=== PATIENT | female | born 1980 | race Caucasian/White ===

== ENCOUNTER → 2017-04-15 | Outpatient (CLI) | payer OTHER ==
[~2017-04-15] MED LIST: ALPR0.25 PO; IBUP-1223 PO; OXYC-302 PO; PREN1TAB60 PO; SERT25TA PO; SERT50TA PO
[2017-04-15 10:56] LABS: HEMATOCRIT 39.4 % (34.6-47.8); HEMOGLOBIN 13.3 g/dL (11.7-16.4); WHITE BLOOD COUNT 7.4 x10^3/uL (3.4-10)
[2017-04-15 11:09] LABS: ASPARTATE AMINO TRANSFERASE 14 U/L (15-37); BLOOD UREA NITROGEN 11 mg/dL (7-18)
== END ==
LOC: STAR 10:08
PROVIDERS: ATTEND Obstetrics & Gynecology
DX: Z01.818 Encounter for other preprocedural examination (principal); N92.0 Excessive and frequent menstruation with regular cycle
CPT/HCPCS: 36415; 80053; 81003; 84702; 85025

== ENCOUNTER 2017-04-21 14:41 | Emergency (ER) | payer OTHER ==
[~2017-04-21] VITALS: Ht 152.4 cm; Wt 56.4 kg
[2017-04-21] MEDS ORDERED: NITR100C56 PO (15:15)
[2017-04-21 17:25] VITALS: BP 115/62
== END 2017-04-21 17:26 | disposition home or self-care (01) ==
LOC: ED 16:22
DX: R51 Headache (principal)
CPT/HCPCS: 70450; 99284

== ENCOUNTER 2017-04-24 07:42 | Day surgery (SDC) | payer OTHER ==
[~2017-04-24] VITALS: Ht 152.4 cm; Wt 56.2 kg
[~2017-04-24 07:42] MED LIST changes: +BUPIVACAINE/PF 0.25% ONE; +EPINEPHRINE 1 MG/ML, 1ML ONE; +FLUORESCEIN SODIUM 500 MG/5 ML ONE; +NITR100C56 PO
[2017-04-24] MEDS ORDERED: LACTATED RINGERS 1,000 ML IV SCH (08:07)
[2017-04-24 08:09] LABS: HCG UR LOT HCG7030192
[2017-04-24 08:11] LABS: HCG UR OBC PASS
[2017-04-24] MEDS ORDERED: OxyconTIN ER 10 MG TAB.ER ONE (08:14)
[2017-04-24] MEDS ORDERED: ACETAMINOPHEN 500 MG TABLET ONE (08:14)
[2017-04-24] MEDS ORDERED: ENOXAPARIN 40 MG/0.4 ML SQ ONE (08:30)
[2017-04-24] MEDS ORDERED: ACETAMINOPHEN 500 MG TABLET PO ONE (08:30)
[2017-04-24] MEDS ORDERED: OxyconTIN ER 10 MG TAB.ER PO ONE (08:30)
[2017-04-24] MEDS ORDERED: GABAPENTIN 300 MG CAPSULE PO ONE (08:30)
[2017-04-24 08:44] VITALS: BP 103/66
[2017-04-24] MEDS ORDERED: FENTANYL PF 100 MCG/2ML ONE ×2 (09:49→12:19)
[2017-04-24] MEDS ORDERED: PROPOFOL 10 MG/ML, 20ML ONE (09:49)
[2017-04-24] MEDS ORDERED: SUCCINYLCHOLINE 20 MG/ML, 10ML ONE (09:49)
[2017-04-24] MEDS ORDERED: MIDAZOLAM 1 MG/ML, 2ML ONE (09:49)
[2017-04-24] MEDS ORDERED: ROCURONIUM 10 MG/ML ONE ×3 (09:49→09:51)
[2017-04-24] MEDS ORDERED: CEFAZOLIN 1,000 MG ONE (09:51)
[2017-04-24] MEDS ORDERED: FENTANYL PF 100 MCG/2ML IV PRN (10:00)
[2017-04-24] MEDS ORDERED: LABETALOL 5MG/ML, 20ML IV PRN (10:00)
[2017-04-24] MEDS ORDERED: HYDROmorphone 1 MG/ML, 1ML IV PRN (10:00)
[2017-04-24] MEDS ORDERED: MIDAZOLAM 1 MG/ML, 2ML IV PRN (10:00)
[2017-04-24] MEDS ORDERED: hydrALAzine 20 MG/ML, 1ML IV PRN (10:00)
[2017-04-24] MEDS ORDERED: METOCLOPRAMIDE 5 MG/ML, 2ML IV PRN (10:00)
[2017-04-24] MEDS ORDERED: EPHEDRINE 50 MG/ML, 1ML IVPush PRN (10:00)
[2017-04-24] MEDS ORDERED: ONDANSETRON 2MG/ML, 2ML IVPush PRN (10:00)
[2017-04-24] MEDS ORDERED: MEPERIDINE/PF 25MG/0.5ML IVPush PRN (10:00)
[2017-04-24] MEDS ORDERED: ALBUTEROL SULFATE 2.5 MG/3 ML NPPB PRN (10:00)
[2017-04-24] MEDS ORDERED: PROMETHAZINE 25 MG/ML, 1ML IV PRN (10:00)
[2017-04-24] MEDS ORDERED: METOPROLOL 1 MG/ML, 5ML IV PRN (10:00)
[2017-04-24] MEDS ORDERED: ACETAMINOPHEN 325 MG TABLET PO PRN (10:00)
[2017-04-24] MEDS ORDERED: KETOROLAC 30 MG/1 ML IV PRN (10:00)
[2017-04-24] MEDS ORDERED: OXYcodone 5 MG/5 ML ORAL.SOL UDC PO PRN (10:00)
[2017-04-24] MEDS ORDERED: ONDANSETRON 2MG/ML, 2ML ONE ×2 (10:47)
[2017-04-24] MEDS ORDERED: DEXAMETHASONE 4 MG/ML, 1ML ONE (10:47)
[2017-04-24] MEDS ORDERED: KETOROLAC 30 MG/1 ML ONE (12:19)
[2017-04-24] MEDS ORDERED: OXYcodone 5 MG/5 ML ORAL.SOL UDC ONE (12:20)
[2017-04-24 15:15] LABS: HEMATOCRIT 35.8 % (34.6-47.8); HEMOGLOBIN 12.2 g/dL (11.7-16.4)
== END 2017-04-24 16:30 ==
LOC: OUT 07:42
PROVIDERS: ATTEND Obstetrics & Gynecology
DX: N92.0 Excessive and frequent menstruation with regular cycle (principal); N94.6 Dysmenorrhea, unspecified; N80.0 Endometriosis of uterus; Z98.890 Other specified postprocedural states; Z88.5 Allergy status to narcotic agent; Z98.51 Tubal ligation status; G43.909 Migraine, unspecified, not intractable, without status migrainosus
CPT/HCPCS: 36415; 52000; 58552; 81025; 85014; 85018; 88307; J0171; J0330; J0690; J1100; J1650; J1885; J2250; J2405; J2704; J3010; J3490; J7120

== ENCOUNTER → 2017-10-21 | Outpatient (CLI) | payer OTHER ==
[~2017-10-21] MED LIST changes: -BUPIVACAINE/PF 0.25% ONE; -EPINEPHRINE 1 MG/ML, 1ML ONE; -FLUORESCEIN SODIUM 500 MG/5 ML ONE
== END | disposition home or self-care (01) ==
LOC: CFH 13:02
PROVIDERS: ATTEND Nurse Practitioner
DX: Z12.31 Encounter for screening mammogram for malignant neoplasm of breast (principal)
CPT/HCPCS: 77063; 77067